=== PATIENT | male | born 1990 | race Two or more races ===

== ENCOUNTER 2017-01-17 15:18 | Emergency (ER) | payer SELFPAY ==
[~2017-01-17] VITALS: Ht 170.2 cm; Wt 113.4 kg
[2017-01-17 15:33] VITALS: BP 138/90
[2017-01-17] MEDS ORDERED: LORazepam 0.5 MG TAB PO ONE (15:45)
== END 2017-01-17 15:49 | disposition left against medical advice (07) ==
LOC: ER 15:26
DX: R07.89 Other chest pain (principal); F41.9 Anxiety disorder, unspecified; F17.210 Nicotine dependence, cigarettes, uncomplicated
CPT/HCPCS: 71010